=== PATIENT | female | born 1965 | race Caucasian/White ===

== ENCOUNTER 2018-05-08 03:54 | Emergency (ER) | payer OTHER ==
[~2018-05-08] VITALS: Ht 162.6 cm; Wt 110.4 kg
[2018-05-08 04:01] VITALS: BP 185/81; PULSE 129; RESP 16; TEMP 98.5; O2SAT 98
[2018-05-08 04:51] LABS: AUTOMATED NEUTROPHIL # 8.2 TH/MM3 (1.8-7.7); BASOPHIL # 0.1 TH/MM3 (0-0.2); EOSINOPHIL # 0.1 TH/MM3 (0-0.4); EOSINOPHIL % 0.9 % (0.0-4.0); HEMATOCRIT 45.2 % (35.0-46.0); HEMOGLOBIN 15.2 GM/DL (11.6-15.3); LYMPH % 17.9 % (9.0-44.0); LYMPHOCYTE # 2.1 TH/MM3 (1.0-4.8); MEAN CELL VOLUME 76.7 FL (80.0-100.0); MEAN CORPUSCULAR HEMOGLOBIN 25.9 PG (27.0-34.0); MEAN CORPUSCULAR HGB CONC 33.7 % (32.0-36.0); MEAN PLATELET VOLUME 9.4 FL (7.0-11.0); MONO % 8.5 % (0.0-8.0); NEUT % 71.7 % (16.0-70.0); PLATELET COUNT 333 TH/MM3 (150-450); WHITE BLOOD COUNT 11.5 TH/MM3 (4.0-11.0)
[2018-05-08 05:00] VITALS: O2SAT 98
[2018-05-08 05:02] LABS: CHLORIDE 103 MEQ/L (98-107); SODIUM (NA) 135 MEQ/L (136-145)
[2018-05-08 05:03] VITALS: BP 179/83; PULSE 125; RESP 16; O2SAT 98
[2018-05-08 05:05] LABS: CALCIUM 9.5 MG/DL (8.5-10.1)
[2018-05-08 05:06] LABS: ALBUMIN 4.4 GM/DL (3.4-5.0); BICARBONATE 20.5 MEQ/L (21.0-32.0); BLOOD UREA NITROGEN 26 MG/DL (7-18); GLUCOSE,RANDOM 257 MG/DL (74-106)
[2018-05-08 05:09] LABS: ALT (GPT) 123 U/L (10-53); AST (GOT) 33 U/L (15-37); GLOMERULAR FILTRATION RATE 43 ML/MIN (>89)
[2018-05-08 05:10] LABS: TOTAL BILIRUBIN ADULT 0.6 MG/DL (0.2-1.0); TOTAL PROTEIN 9.5 GM/DL (6.4-8.2)
[2018-05-08 05:12] LABS: ALKALINE PHOSPHATASE 86 U/L (45-117)
[2018-05-08] MEDS ORDERED: ONDANSETRON HCL 4 MG/2 ML VIAL IV PUSH ONE (05:45)
[2018-05-08] MEDS ORDERED: SODIUM CHLOR 0.9% 1000 ML INJ 1,000 ML IV SCH (05:45)
--- NOTE | 2018-05-08 05:57 | PD ---
HPI Chief Complaint: GI Complaint Time Seen by Provider: 05:38 Travel History International Travel<30 days: No Contact w/Intl Traveler<30days: No Traveled to known affect area: No History of Present Illness HPI The patient is a 53-year-old female who complains of nausea and diarrhea without vomiting but with abdominal cramps since Friday. The diarrhea has been watery. The patient has a history of diabetes and is on 0zempic shots weekly. She has been taking these for several months and did not have any of these symptoms. She denies any blood in the stool. She denies any fever. She does have abdominal cramps in the upper quadrants but no real abdominal pain. PFSH Past Medical History Cardiovascular Problems: Yes (HTN) Diabetes: Yes Patient Takes Glucophage: Yes (05/05/18) Diverticulitis: Yes (bowel perforation) Hypertension: Yes Medical other: Yes (fatty liver) ?: Not Past Surgical History Abdominal Surgery: Yes (colon perforation/resection) Cholecystectomy: Yes Social History Alcohol Use: No Tobacco Use: No Substance Use: No Allergies-Medications (Allergen,Severity, Reaction): Coded Allergies: acetaminophen (Verified Allergy, Mild, Itching, 05/08/18) hydrocodone (Verified Allergy, Mild, Itching, 05/08/18) promethazine (Verified Adverse Reaction, Unknown, 05/08/18) pt doesn't remember details, just that she can't take this med Reported Meds & Prescriptions Reported Meds & Active Scripts Active Reported Ibuprofen 200 Mg Tab 200 Mg PO Q4H PRN Multiple Vitamin 1 Tab 1 Tab PO DAILY [ozempic] 0.25 SQ WEEKLY Toprol XL (Metoprolol Succinate) 50 Mg Tab 50 Mg PO DAILY Aldactone (Spironolactone) 50 Mg Tab 50 Mg PO DAILY Metformin ER (Metformin HCl) 1,000 Mg Kathrine 1,000 Mg PO DAILY With evening meal Review of Systems Except as stated in HPI: all other systems reviewed are Neg Physical Exam Narrative GENERAL: The patient appears moderately dehydrated, alert, oriented 3 and slight apparent distress with her abdominal discomfort in the form of cramps in the upper quadrants SKIN: Focused skin assessment warm/dry. HEAD: Atraumatic. Normocephalic. EYES: Pupils equal and round. No scleral icterus. No injection or drainage. ENT: No nasal bleeding or discharge. Mucous membranes pink and moist. NECK: Trachea midline. No JVD. CARDIOVASCULAR: Regular rate and rhythm. No murmur appreciated. RESPIRATORY: No accessory muscle use. Clear to auscultation. Breath sounds equal bilaterally. GASTROINTESTINAL: Abdomen soft, non-tender, nondistended. Hepatic and splenic margins not palpable. MUSCULOSKELETAL: No obvious deformities. No clubbing. No cyanosis. No edema. NEUROLOGICAL: Awake and alert. No obvious cranial nerve deficits. Motor grossly within normal limits. Normal speech. PSYCHIATRIC: Appropriate mood and affect; insight and judgment normal. Data Data Last Documented VS Vital Signs Date Time Temp Pulse Resp B/P (MAP) Pulse Ox O2 Delivery O2 Flow Rate FiO2 05/08/18 05:03 125 16 179/83 (115) 98 Room Air 05/08/18 04:01 98.5 Orders Orders Complete Blood Count With Diff (05/08/18 04:08) Comprehensive Metabolic Panel (05/08/18 04:08) Urinalysis - C+S If Indicated (05/08/18 04:08) Ed Urine Pregnancytest Poc (05/08/18 04:08) Iv Access Insert/Monitor (05/08/18 04:08) Oxygen Administration (05/08/18 04:08) Oximetry (05/08/18 04:08) Lipase (05/08/18 04:08) Ondansetron Inj (Zofran Inj) (05/08/18 05:45) Sodium Chlor 0.9% 1000 Ml Inj (Ns 1000 M (05/08/18 05:45) Labs Laboratory Tests Test 05/08/18 04:40 White Blood Count 11.5 TH/MM3 Red Blood Count 5.90 MIL/MM3 Hemoglobin 15.2 GM/DL Hematocrit 45.2 % Mean Corpuscular Volume 76.7 FL Mean Corpuscular Hemoglobin 25.9 PG Mean Corpuscular Hemoglobin Concent 33.7 % Red Cell Distribution Width 13.0 % Platelet Count 333 TH/MM3 Mean Platelet Volume 9.4 FL Neutrophils (%) (Auto) 71.7 % Lymphocytes (%) (Auto) 17.9 % Monocytes (%) (Auto) 8.5 % Eosinophils (%) (Auto) 0.9 % Basophils (%) (Auto) 1.0 % Neutrophils # (Auto) 8.2 TH/MM3 Lymphocytes # (Auto) 2.1 TH/MM3 Monocytes # (Auto) 1.0 TH/MM3 Eosinophils # (Auto) 0.1 TH/MM3 Basophils # (Auto) 0.1 TH/MM3 CBC Comment DIFF FINAL Differential Comment Blood Urea Nitrogen 26 MG/DL Creatinine 1.30 MG/DL Random Glucose 257 MG/DL Total Protein 9.5 GM/DL Albumin 4.4 GM/DL Calcium Level 9.5 MG/DL Alkaline Phosphatase 86 U/L Aspartate Amino Transf (AST/SGOT) 33 U/L Alanine Aminotransferase (ALT/SGPT) 123 U/L Total Bilirubin 0.6 MG/DL Sodium Level 135 MEQ/L Potassium Level 3.5 MEQ/L Chloride Level 103 MEQ/L Carbon Dioxide Level 20.5 MEQ/L Anion Gap 12 MEQ/L Estimat Glomerular Filtration Rate 43 ML/MIN Lipase 153 U/L [facility] Medical Decision Making Medical Screen Exam Complete: Yes Emergency Medical Condition: Yes Medical Record Reviewed: Yes Interpretation(s) The BUN is 26, creatinine 1.3, GFR 43 with total protein 9.5 and GPT 123 and sodium 135 and bicarb 20.5. The rest of the complete metabolic profile is normal. The lipase is normal. The CBC shows a white count of 11,500 but the hemoglobin is 15.2 and hematocrit is 45.2. Differential Diagnosis Gastroenteritis, Ozempic side effect, bacterial enteritis, cholecystitis, dehydration Narrative Course The patient likely has gastroenteritis with mild dehydration. The patient does have an elevated BUN of 26 and she does have apparent hemoconcentration of the hemoglobin and hematocrit. Diagnosis Primary Impression: Viral gastroenteritis Additional Impression: Moderate dehydration Additional Instructions: As we discussed, for the first 24 hours try to stick with clear liquids. then gradually reintroduce her diet adding fatty foods last. Take the Zofran regularly for the first 24-48 hours, it is 1 tablet 3 times daily. Follow-up with her primary care physician next week. Med/Other Pt SpecificInfo: Prescription(s) given Scripts Ondansetron (Zofran) 8 Mg Tab 8 MG PO TID for Nausea/Vomiting, #30 TAB 0 Refills Prov: Hernando Rodriguez MD 05/08/18 Disposition: 01 DISCHARGE HOME Condition: Stable Hernando Rodriguez MD May 08, 2018 05:57
[2018-05-08] MEDS ORDERED: IBUP200T47 PO (05:58)
[2018-05-08] MEDS ORDERED: TOPR50TA PO (05:58)
[2018-05-08] MEDS ORDERED: MULTTAB67 PO (05:58)
[2018-05-08] MEDS ORDERED: ozempic SQ (05:58)
[2018-05-08] MEDS ORDERED: METF-382 PO (05:58)
[2018-05-08] MEDS ORDERED: ALDA50TA2 PO (05:58)
[2018-05-08] MEDS ORDERED: ZOFR8TAB PO (06:59)
== END 2018-05-08 07:19 | disposition home or self-care (01) ==
LOC: PHED 03:54
DX: A08.4 Viral intestinal infection, unspecified (principal); E86.0 Dehydration; R10.10 Upper abdominal pain, unspecified; R19.7 Diarrhea, unspecified; R11.0 Nausea; I10 Essential (primary) hypertension; E11.9 Type 2 diabetes mellitus without complications; Z88.5 Allergy status to narcotic agent; Z88.8 Allergy status to other drugs, medicaments and biological substances; Z79.84 Long term (current) use of oral hypoglycemic drugs; Z79.899 Other long term (current) drug therapy
CPT/HCPCS: 80053; 83690; 85025; 96361; 96374; 99284; J2405; J7030